=== PATIENT | female | born 1950 | race Caucasian/White ===

== ENCOUNTER 2018-05-14 09:42 | Inpatient (IN) | payer MEDICARE, OTHER ==
[~2018-05-14 09:42] MED LIST: Bacitracin Oint 1 GM U/D Packet ONE; Bupivacaine 0.5% 50 ML MDV ONE; Lidocaine 1% with EPINEPHrine 1:100,000 50 ML MDV ONE; Meropenem 500 MG SDV ONE
[2018-05-14] MEDS ORDERED: Glycopyrrolate 0.2 MG/ML 5 ML MDV ONE (10:28)
[2018-05-14] MEDS ORDERED: Succinylcholine 200 MG/10 ML MDV ONE (10:28)
[2018-05-14] MEDS ORDERED: Neostigmine Methylsulfate 1 MG/ML 5 ML Syringe ONE (10:28)
[2018-05-14] MEDS ORDERED: Rocuronium 50 MG/5 ML Vial ONE (10:28)
[2018-05-14] MEDS ORDERED: Propofol 200 MG/20 ML SDV ONE (10:28)
[2018-05-14] MEDS ORDERED: Dexamethasone 4 MG/ML SDV ONE (10:28)
[2018-05-14] MEDS ORDERED: Ondansetron 4 MG/2 ML SDV ONE (10:28)
[2018-05-14] MEDS ORDERED: fentaNYL 250 MCG/5 ML SDV ONE (10:29)
[2018-05-14] MEDS: Dextrose 5%-Lactated Ringers 1,000 ML IV SCH ×2 (10:53→17:22)
[2018-05-14] MEDS ORDERED: Albuterol/Ipratropium 3.0-0.5 MG/3 ML Neb Soln NEB ONE (11:15)
[2018-05-14] MEDS ORDERED: Meropenem 500 MG in Sodium Chloride 0.9% 50 ML IV ONE (11:15)
[2018-05-14] MEDS ORDERED: fentaNYL 100 MCG/2 ML SDV IVPUSH ONE (14:09)
[2018-05-14] MEDS ORDERED: Linezolid 600 MG in Premix Bag 1 BAG IV ONE (14:30)
[2018-05-14] MEDS ORDERED: Naloxone 0.4 MG/ML SDV IV PRN (15:05)
[2018-05-14] MEDS ORDERED: HYDROmorphone/Normal Saline 15 MG/30 ML PCA IV PRN (15:05)
[2018-05-14] MEDS ORDERED: Acetaminophen/HYDROcodone 325-5 MG Tab PO PRN (15:37)
[2018-05-14] MEDS ORDERED: hydrOXYzine HCl 100 MG/2 ML SDV IM PRN (15:40)
[2018-05-14] MEDS ORDERED: Ondansetron 4 MG/2 ML SDV IV PRN (15:40)
[2018-05-14] MEDS ORDERED: Albuterol 8 GM Inhaler INH PRN (15:42)
[2018-05-14] MEDS: Acetaminophen 500 MG Tab PO SCH ×2 (16:23→22:02)
[2018-05-15] MEDS: Linezolid 600 MG in Premix Bag 1 BAG IV SCH ×2 (03:02→14:19)
[2018-05-15] MEDS: Acetaminophen 500 MG Tab PO SCH ×4 (03:06→21:09)
--- NOTE | 2018-05-15 11:45 | PN ---
DATE OF SERVICE: 05/15/2018 SUBJECTIVE: Kia is postop day one. Pain has been controlled. She is using the MERIT SYSTEM DIRECTOR. She is on Zyvox for antibiotic coverage. ROZ drain has putout drop. Vital signs have been stable. Denies any other associated signs and symptoms. OBJECTIVE: GENERAL: Kia George is a 68-year-old female. Alert and orientated. VITAL SIGNS: TPR is 95.3, 51, 16. Blood pressure 117/50. HEENT: Negative. NECK: Supple. HEART: Regular rate and rhythm. LUNGS: Clear. SKIN: Dressing is dry and intact. ROZ drain intact. EXTREMITIES: SCDs are on. ASSESSMENT: Excision of infected subfacial soft tissue over the pubic area 6.5 cm, removal of foreign body (sutures) entering mass for infected subfascial mass over the pubic area foreign bodies. Date of surgery, 05/14/2018. Surgeon, Ender Jackson MD. PLAN: 1. Tylenol 1000 mg every 6 hours p.o. scheduled. 2. Discontinue MERIT SYSTEM DIRECTOR. 3. Discontinue continuous pulse ox. 4. Dilaudid 2 mg 1 to 2 every 4 hours p.r.n. pain. 5. Teach the patient ROZ drain care when she is discharged. 6. Good pulmonary toilet. We will evaluate p.r.n. or in a.m. Stephanie Durbin PA-C /[id number]
[2018-05-15] MEDS: Dextrose 5%-Lactated Ringers 1,000 ML IV SCH (18:03)
[2018-05-15] MEDS: HYDROmorphone 2 MG Tab PO PRN (21:14)
[2018-05-16] MEDS: Linezolid 600 MG in Premix Bag 1 BAG IV SCH ×2 (02:55→13:55)
[2018-05-16] MEDS: Acetaminophen 500 MG Tab PO SCH ×4 (03:00→21:30)
[2018-05-16] MEDS: Dextrose 5%-Lactated Ringers 1,000 ML IV SCH (03:01)
--- NOTE | 2018-05-16 10:46 | PN ---
DATE OF SERVICE: 05/16/2018 SUBJECTIVE: Kia had some confusion during the night. Staff did not feel she was able to understand to empty out her ROZ drain. Wound culture showed coag-negative Staph. Discharge planning will become involved today. REVIEW OF SYSTEMS: Remainder of review of systems negative for any pertinent positives and negatives. OBJECTIVE: GENERAL: Kia is a 68-year-old female. VITAL SIGNS: TPR is 96.5, 51, 16, blood pressure is 154/64. HEENT: Negative. NECK: Supple. HEART: Regular rate and rhythm. LUNGS: Clear. ABDOMEN: Aquacel dressing is on. Dry and intact. ROZ drain is intact and is draining 3 mL of a light pink serosanguineous drainage which is mainly seen in the tubing. EXTREMITIES: Without peripheral edema. ASSESSMENT: Excision of infected subfascial soft tissue over the pubic area 6.5 cm, removal of foreign body (sutures), entering mass for infected subfascial mass over the pubic area foreign bodies. Date of surgery; 05/14/2018. Surgeon; Ender Jakcson MD. PLAN: 1. Continue Tylenol for pain. 2. Saline lock IV. 3. Discharge planning to be involved regarding home health care. 4. May shower leaving Aquacel on until before discharge. 5. Call pharmacy/insurance regarding coverage of Zyvox 600 mg b.i.d. for 10 days to check what the patient would be paying out of pocket. 6. Plan discharge in a.m. 7. Good pulmonary toilet. 8. We will evaluate p.r.n. or in a.m. Stephanie Durbin PA-C /[id number]
[2018-05-16] MEDS: Donepezil 10 MG Tab PO SCH (21:30)
[2018-05-16] MEDS: HYDROmorphone 2 MG Tab PO PRN (21:34)
[2018-05-17] MEDS: Linezolid 600 MG in Premix Bag 1 BAG IV SCH (03:02)
[2018-05-17] MEDS: Acetaminophen 500 MG Tab PO SCH ×4 (03:22→21:24)
[2018-05-17] MEDS ORDERED: hydrOXYzine HCl 25 MG Tab PO PRN (07:48)
[2018-05-17] MEDS ORDERED: Ibuprofen 400 MG Tab PO PRN (07:48)
[2018-05-17] MEDS ORDERED: Ondansetron 4 MG Tab.DIS PO PRN (07:48)
[2018-05-17] MEDS: Ciprofloxacin 500 MG Tab PO SCH ×2 (09:27→21:24)
--- NOTE | 2018-05-17 11:35 | PN ---
DATE OF SERVICE: 05/17/2018 SUBJECTIVE: Kia continues to have episodes of confusion. ROZ drain put out 2 mL. Culture returned Staphylococcus epidermidis, sensitive to Cipro. Has had episodes of nausea. Nursing staff felt was directly related to the Dilaudid. They did try giving Zofran prior to Dilaudid, but it still caused episodes of nausea. Vital signs have been stable. Oral intake 1324, output 1450. PLAN: Plan is to have a mini mental evaluation this morning and to plan discharge with home health care in [facility] Stephanie Durbin PA-C /[id number]
[2018-05-17] MEDS: Donepezil 10 MG Tab PO SCH (21:24)
[2018-05-18] MEDS: Acetaminophen 500 MG Tab PO SCH (05:00)
[2018-05-18] MEDS: Ciprofloxacin 500 MG Tab PO SCH (08:39)
--- NOTE | 2018-05-20 14:30 | DISCH ---
FINAL DIAGNOSIS: Infected subfascial mass over pubic area containing foreign bodies (stitches). SECONDARY DIAGNOSES: 1. Mixed anxiety and depression. 2. Frontotemporal dementia. 3. History of asthma. OPERATIVE PROCEDURE: This was done on 05/14, excision of infected subfascial soft tissue mass over the pubic area along with removal of contained foreign body (sutures) entering mass. SUMMARY: This is a 68-year-old female presenting with an enlarging soft tissue mass. This was removed more or less intact. This was overlying the pubic bone and had Prolene sutures entering into the mass, likely related from previous bladder suspension-type procedure done 8 years ago. The cultures were growing Staph epidermidis sensitive to everything in the panel and she will be sent home with a 2-week course of additional Cipro 500 mg b.i.d. The drain which was present was pulled. The patient does have a history of dementia and is on Aricept. She had been off that and now has restarted home. She will be, otherwise, continuing her usual home medications plus the Cipro and Tylenol as needed for pain. Follow up with Dr. Jackson in [facility] on 05/22/2018. The patient was fairly confused through much of the hospitalization, but now was started back on her Aricept and appeared to be improving somewhat. Home Care will be involved in her management at home as well.
--- NOTE | 2018-05-28 09:45 | OR ---
DATE OF PROCEDURE: 05/14/2018 PREOPERATIVE DIAGNOSIS: Enlarging possibly infected soft tissue mass overlying pubic bone. POSTOPERATIVE DIAGNOSIS: Infected subfascial mass of the pubic bone containing of foreign bodies (stitches). OPERATIVE PROCEDURE: 1. Excision of infected subfascial soft tissue mass over the pubic bone area (17120). 2. Removal of foreign body (sutures entering down from within the bone and underlying muscle into soft tissue mass (64820). ANESTHESIA: General. INDICATION FOR PROCEDURE: The patient presents with progressively enlarging soft tissue mass. This has quite a bit of redness around it, suggestive of possible underlying infection and this overlies the pubic bone anteriorly on the more inferior aspect more or less just above the upper end of the labia. Plan is to proceed with excision and/or drainage of this. Potential risks including bleeding and infection, possible recurrence of the process in for additional surgery depending on the final pathology report were all reviewed with the patient and she wishes to proceed. DESCRIPTION OF PROCEDURE: The patient was taken to the operating room and placed in a supine position. After general endotracheal anesthesia was induced, the area as outlined above was prepped and draped. An elliptical vertically oriented incision was then made and carried down through the skin and subcutaneous tissue that the mass appeared to be displacing the muscular fascia anteriorly and as one dissected it became evident that this was more or less affixed to the muscular fascia anteriorly and then the posterior aspect of the dissection was retracted over the muscle in that area. The mass was gradually dissected free using predominantly electrocautery and was delivered intact and it measured 6.5 cm. During the course of the dissection, Prolene sutures were noted to be coming into the mass. I suspect this may be of a stitch abscess with the suture likely related to bladder suspension procedure done many years ago based on the location of the sutures and the incision, although the patient was not able to give us history that procedure having been done. The sutures were then removed as they came up from muscle and bone and some of the sutures were left intact with the mass and all other portions were from it. The mass came out intact; it left the field and was opened and contains a purulent material. Gram stains showed gram-positive cocci. The wound was then irrigated with a Zyvox- containing saline solution and a 10-Romanian round Bryant-Montemayor drain was then placed through stab wound just above the incision and the incision was then closed with total of 3 layers of 3-0 and 4-0 Vicryl stitch deep and then edi for the skin. The drain was fixed with some 4-0 Vicryl stitch as well and the patient was taken to the recovery room in satisfactory condition. There were no evident complications. Ender Jackson MD /[id number]
== END 2018-05-18 09:12 | disposition home or self-care (01) | DRG 392 ==
LOC: JP.SDS 09:42 → JP.MS 14:50
PROVIDERS: ADMIT Surgery; ATTEND Surgery
PROC: 0JBC0ZX Excision of Pelvic Region Subcutaneous Tissue and Fascia, Open Approach, Diagnostic (ICD-10-PCS; principal; 2018-05-14)
PROC: 0JCC0ZZ Extirpation of Matter from Pelvic Region Subcutaneous Tissue and Fascia, Open Approach (ICD-10-PCS; 2018-05-14)
DX: R19.09 Other intra-abdominal and pelvic swelling, mass and lump (principal); B95.7 Other staphylococcus as the cause of diseases classified elsewhere; F41.8 Other specified anxiety disorders; G31.09 Other frontotemporal neurocognitive disorder; F02.80 Dementia in other diseases classified elsewhere, unspecified severity, without behavioral disturbance, psychotic disturbance, mood disturbance, and anxiety; Z88.0 Allergy status to penicillin; Z88.8 Allergy status to other drugs, medicaments and biological substances; J45.909 Unspecified asthma, uncomplicated
CPT/HCPCS: 80053; 83735; 84100; 85027; 87070; 87075; 87077; 87186; 87205; 88304; 94640; J1100; J2020; J2185 ×2; J2405; J2704; J2710; J3010 ×2; J3490 ×2; J7042; J7050; 36415; 94762; 96125-GN; A9270-GY; J0330; J1170; J3410; J7620-GY